=== PATIENT | female | born 1965 | race Caucasian/White ===

== ENCOUNTER 2018-09-13 10:27 | Observation (INO) ==
[2018-09-13] MEDS ORDERED: TORADOL IV ONE (10:58)
[2018-09-13 11:21] LABS: BASO# 0.03 X1000 (0.0-0.2); BASO% 0.5 % (0.0-0.8); EOS# 0.08 X1000 (0.0-0.7); EOS% 1.3 % (0.0-10.0); HEMATOCRIT 39.1 % (37.0-47.0); IMM GRAN# 0.02 X1000 (0.0-0.04); IMM GRAN% 0.3 % (0.0-0.5); LYMPH# 2.02 X1000 (1.2-3.4); LYMPH% 33.9 % (20.5-51.1); MCH 27.1 PG (27-31); MCHC 33.2 g/dL (33-37); MCV 81.6 FL (81-99); MONO% 10.1 % (1.7-9.3); MPV 11.1 FL (7.4-10.4); NEUT% 53.9 % (42.2-75.2); PLT 330 X1000 (130-400); RBC 4.79 XMIL (4.2-5.4); RDW 14.5 % (11.5-14.5); WBC 5.95 X1000 (4.8-10.8)
--- NOTE | 2018-09-13 11:22 | Diag Imaging Result Doc PS360 ---
EXAM: CHEST-1 VIEW HISTORY: chest pain TECHNIQUE: Portable two views COMPARISON: 09/07/2018 FINDINGS: The lungs are well expanded. The heart is not enlarged. The vessels are not distended. There are no infiltrates. No effusion identified. There has been surgery to the lower neck. IMPRESSION: Negative exam. Electronically signed by Yaron Spicer 09/13/2018 11:20 AM
[2018-09-13 11:29] LABS: INR 0.94; PROTIME 13.3 Seconds (11.0-16.0)
[2018-09-13 11:30] LABS: PTT 32.2 Seconds (22.3-41.8)
[2018-09-13 11:32] LABS: D-DIMER 0.3 ug/mLFEU (0.0-0.52)
[2018-09-13 11:40] LABS: ALB/GLOB RATIO 1.3; ALBUMIN 4.3 g/dL (3.5-5.0); CREATININE 1.2 mg/dL (0.5-0.9); POTASSIUM 4.3 mmol/L (3.5-5.1); TOTAL BILIRUBIN 0.42 mg/dL (0.20-1.00); TOTAL PROTEIN 7.5 g/dL (6.3-8.3)
[2018-09-13 11:55] LABS: URINE SOURCE CLEAN CATCH
[2018-09-13 12:04] LABS: BILIRUBIN URINE NEGATIVE (NEGATIVE); BLOOD URINE NEGATIVE (NEGATIVE); COLOR YELLOW; GLUCOSE URINE NEGATIVE (NEGATIVE); KETONE URINE NEGATIVE (NEGATIVE); LEUKOCYTES URINE NEGATIVE (NEGATIVE); NITRITE URINE NEGATIVE (NEGATIVE); PH URINE 7.5; PROTEIN URINE NEGATIVE (NEGATIVE); SP GRAVITY URINE 1.002; TURBIDITY URINE CLEAR (CLEAR); UROBILINOGEN URINE NORMAL (NORMAL)
[2018-09-13 12:05] LABS: UR EPITHELIAL CELLS <10 /HPF (<10); URINE BACTERIA NEGATIVE /HPF; URINE RBC <10 /HPF (<10); URINE WBC <10 /HPF (<10)
[2018-09-13 12:23] LABS: UR AMPHETAMINES QUAL NONE DETECTED (NONE DETECT); UR BARBITUATES QUAL NONE DETECTED (NONE DETECT); UR BENZODIAZEPIN QUAL NONE DETECTED (NONE DETECT); UR CANNABINOIDS QUAL NONE DETECTED (NONE DETECT); UR COCAINE QUAL NONE DETECTED (NONE DETECT); UR METHADONE QUAL NONE DETECTED (NONE DETECT); UR OPIATES QUAL NONE DETECTED (NONE DETECT); UR OXYCODONE QUAL NONE DETECTED (NONE DETECT); UR PCP QUAL NONE DETECTED (NONE DETECT)
--- NOTE | 2018-09-13 12:53 | EKG Report ---
Test Performed on : 09/13/2018 10:33:24 AM Test Reason : ED. NO EKG ORDER FOR MUSE Blood Pressure : / mmHG Vent. Rate : 062 BPM Atrial Rate : 062 BPM P-R Int : 168 ms QRS Dur : 080 ms QT Int : 422 ms P-R-T Axes : 083 021 041 degrees QTc Int : 428 ms Normal sinus rhythm. Septal infarct (cited on or before 28-AUG-2018) Abnormal ECG When compared with ECG of 28-AUG-2018 14:23, (Unconfirmed) No significant change was found Unconfirmed Result
[2018-09-13] MEDS ORDERED: ZOFRAN IV PRN (16:08)
[2018-09-13] MEDS ORDERED: VENTOLIN HFA INH PRN (16:11)
--- NOTE | 2018-09-13 16:37 | Diag Imaging Result Doc PS360 ---
EXAM: RIBS ONLY RIGHT 09/13/2018 HISTORY: right rib pain TECHNIQUE: Right rib series 4 views COMMENT: There is no evidence of pneumothorax or pleural fluid collection. The ribs appear to be intact. There is generalized osteopenia. The pedicles appear to be intact. IMPRESSION: No acute bony abnormality. Electronically signed by Deon Motta 09/13/2018 4:35 PM
--- NOTE | 2018-09-13 17:18 | HISTORY AND PHYSICAL ---
PRIMARY CARE PROVIDER: Dr. Guy at [facility]. WINDOW REPAIRER: From [facility] - tends to have physicians from there. CHIEF COMPLAINT: Right rib pain. HISTORY OF PRESENT ILLNESS: Ms. Jania Sharp is a 53-year-old female with a medical history of hyperlipidemia, hypothyroidism, asthma, autoimmune vitiligo, hiatal hernia, GERD, and depression who is now here stating that this is her third ER visit for this right rib pain that started about six weeks ago. She explains that around six weeks ago she had a sinus infection and went to a walk-in clinic where she was diagnosed with sinus infection, started on antibiotics. She claims she never had any coughing with that. She also states that she was having the right rib pain at that time as well. She went in for a followup visit. The pain was not better on the right ribs and she was prescribed Percocet and Aleve, which she states she has been taking twice a day, the Aleve once a day and the Percocet at night to help with pain. She went to [facility] ER about two weeks ago where she had a CT of the chest performed and they discharged her home with intercostal rib pain to take the Aleve and Percocet. She states that the Aleve actually helps with the pain the best. She also feels like it is worse when she is lying down. It feels better when she is sitting up. The pain radiates from her right lower rib cage around to her back and down her spine and essentially there are no other symptoms that go along with it, except she is short of breath whenever she is having more pain. Pain is continuous and it is primarily staying in a range of 10 on the pain scale. She also claims her last visit here that she was seen by Dr. Mederos, I believe as more of a swaging machine operator visit, according to her - her friend is friends with him and at that time he ordered a CT scan of the abdomen and pelvis and that was 09/07/2018, which reveals that there is constipation and mild mesenteric panniculitis, but is only mild. Her abdomen was soft. She might have had some mild tenderness in the right upper quadrant and in the right rib cage that wrapped around. She denies having any fever or chills and no other pains. She does state that she has on and off chest pains and has so for at least a year. So, back in November of 2017 she had a stress test here that did appear to be abnormal. She went to [facility] where she had a left heart catheterization performed and she states that was normal. Her asthma, she is seen by a sewer contractor by [facility], but she states that it is more of a chronic condition. She does not really have acute exacerbations of it. So, will admit to medical floor for observation for intractable pain of the right rib and get some imaging and put her on a lidocaine patch for that area. Really, the cause is unknown unless it is just a hairline fracture that is worsening. PAST MEDICAL HISTORY: 1. Hyperlipidemia. 2. Hypothyroidism. 3. Autoimmune vitiligo. 4. Asthma. 5. Chest pain on and off for a year. 6. Nine months ago treated for H pylori. 7. Hiatal hernia. 8. Depression. 9. GERD. PAST SURGICAL HISTORY: 1. May of 2016 had a breast reduction. 2. Appendectomy. 3. C4 through 6 fusion and L5 through S1 fusion. 4. Tonsillectomy. 5. Hysterectomy. 6. Right ovarian cyst removed. 7. Right elbow surgery due to a fracture. 8. Left elbow tendonitis surgery. 9. Bilateral knee meniscus tear repair. 10.Left heart catheterization in November 2017, that was negative. SOCIAL HISTORY: Denies tobacco or illicit drug use. She drinks one or two beers about one or two times per week. She has two adult sons, ages 23 and 25. Her is at the bedside. FAMILY HISTORY: Apparently autoimmune vitiligo is all through her family. She has eight sisters and four brothers, all of which have issues with dysphagia and hiatal hernias. Mother had pulmonary emboli and peptic ulcer disease. Father had coronary disease and congestive heart failure at age of 75. She had two brothers who had myocardial infarctions with stents prior to age 40. One sister with coronary artery disease and abdominal thoracic aneurysm and then one brother with bladder cancer. ALLERGIES: Adhesive tape, latex, natural rubber, morphine, and niacin. HOME MEDICATIONS: 1. Advair 250/50 once inhaled as needed. 2. Laura 180 mg p.o. daily. 3. Biotin 2500 mcg p.o. daily. 4. Flonase one spray nasally daily. 5. Krill oil 500 mg p.o. daily. 6. Protonix 40 mg p.o. daily. 7. Prozac 20 mg p.o. daily. 8. Evolocumab 140 mg injection twice a month. 9. Restasis to both eyes daily. 10.Synthroid 125 mcg p.o. daily. 11.Albuterol inhaled four times a day p.r.n. 12.Vitamin D3 5000 units p.o. daily. 13.Naproxen 500 mg p.o. twice daily. 14.She states she takes Percocet at night, but it is not listed under her home medications. REVIEW OF SYSTEMS: A 14-point review of systems is complete, and all were negative except for those mentioned in the above HPI. PHYSICAL EXAMINATION: VITAL SIGNS: Temperature is 98.3, heart rate 51, respiratory rate 13, blood pressure 135/79, O2 saturation is 97% on room air. GENERAL: Ms. Jania Sharp is a 53-year-old female. She is in no acute distress. She is able to answer questions appropriately. HEENT: Atraumatic and normocephalic. Pupils are equal, round and reactive to light. Extraocular movements intact. Mucous membranes are moist. NECK: Trachea midline. CARDIOVASCULAR: S1, S2. Bradycardic rate and rhythm. No rubs, gallops or murmurs. She has trace lower extremity pitting edema. There are plus 2 dorsalis and radial pulses. Negative JVD or carotid bruits. PULMONARY: Clear to auscultation with bilateral breath sounds. No accessory muscle use or work of breathing noted. Tolerating room air. GASTROINTESTINAL: Soft. Tender in the right upper quadrant. Positive bowel sounds x4. Right rib pain that radiates to the back with palpation as well. EXTREMITIES: Moves all extremities equally, full range of motion. NEUROLOGICAL: Alert and oriented x3. Follows commands. Sensory is intact. SKIN: Warm, dry and intact. LABORATORY DATA: White blood cells 5000, hemoglobin 13, hematocrit 39, platelet count 330. INR is 0.94. PTT is 32.2. D dimer is 0.3. Sodium is 140, potassium 4.3, BUN is 18, creatinine 1.2, glucose 84, calcium 10. Bilirubin is 0.42, AST is 12, ALT is 11, alkaline phosphatase 69. Troponin less than 0.01 x2. proBNP 185. Albumin 4.3. Urinalysis negative. Urine drug screen negative. IMAGING: Chest x-ray negative exam. EKG at 10:30 showed normal sinus rhythm; no ST changes, rate is 62. ASSESSMENT AND PLAN: 1. Intractable right rib pain. Has been progressively worse over the last six months with no known cause. She claims that she has not had any issues with coughing. She also claims that it feels like the same kind of pain she has had when she has had a rib fracture in the past. So, given the location of the pain will order a lidocaine patch to put over the top. Will continue her Naproxen and Percocet. May need pain clinic recommendations for discharge. The patient claims that she does not like to take much pain medication, tends only to take the Aleve in the morning and at night and only one Percocet at night. Will get a right rib cage x- ray specifically for the rib cage. 2. History of atypical chest pain on and off for a year. Coronary disease ruled out by left heart catheterization in November 2017. That was performed at [facility]. Cardiac enzymes are negative. There are no ST changes on her electrocardiogram. 3. Hypothyroidism. Continue Synthroid. 4. Hyperlipidemia. Continue home medication regimen for that. 5. Asthma. Continue inhalers. 6. Gastroesophageal reflux disease. Continue Protonix. 7. Depression. Continue Prozac. 8. Deep venous thrombosis with sequential compression devices. Dictated by KASIE Hernandez for Farzana Hwang MD cc: KASIE Hernandez MD Dr. Tripathi
[2018-09-13] MEDS: NS 1,000 ML IV SCH (17:19)
[2018-09-13] MEDS: LIDODERM TOP SCH (17:46)
[2018-09-13] MEDS: NAPROSYN PO SCH (20:52)
[2018-09-13] MEDS: ADVAIR 250/50 DISKUS INH SCH (23:40)
[2018-09-14] MEDS: PERCOCET-5 PO PRN ×2 (00:36→10:10)
[2018-09-14] MEDS: NS 1,000 ML IV SCH (06:06)
[2018-09-14] MEDS ORDERED: PROTONIX PO SCH (07:00)
[2018-09-14 07:24] LABS: BASO# 0.03 X1000 (0.0-0.2); BASO% 0.5 % (0.0-0.8); EOS# 0.09 X1000 (0.0-0.7); EOS% 1.6 % (0.0-10.0); HEMATOCRIT 36.8 % (37.0-47.0); HEMOGLOBIN 11.9 g/dL (12.0-16.0); IMM GRAN# 0.02 X1000 (0.0-0.04); IMM GRAN% 0.3 % (0.0-0.5); LYMPH# 2.25 X1000 (1.2-3.4); MCH 27.2 PG (27-31); MCHC 32.3 g/dL (33-37); MCV 84.2 FL (81-99); MONO# 0.57 X1000 (0.11-0.59); MONO% 9.9 % (1.7-9.3); MPV 10.7 FL (7.4-10.4); NEUT# 2.81 X1000 (1.4-6.5); NEUT% 48.7 % (42.2-75.2); PLT 300 X1000 (130-400); RBC 4.37 XMIL (4.2-5.4); RDW 14.7 % (11.5-14.5); WBC 5.77 X1000 (4.8-10.8)
--- NOTE | 2018-09-14 07:37 | EKG Report ---
Test Performed on : 09/14/2018 07:25:47 AM Test Reason : chest pain Blood Pressure : / mmHG Vent. Rate : 050 BPM Atrial Rate : 050 BPM P-R Int : 180 ms QRS Dur : 078 ms QT Int : 450 ms P-R-T Axes : 068 021 042 degrees QTc Int : 410 ms Sinus bradycardia. with premature atrial complexes. Otherwise normal ECG When compared with ECG of 13-SEP-2018 12:53, (Unconfirmed) premature atrial complexes. are now present Confirmed by Ritesh MULLINS, Bret ([id number]) on 09/14/2018 9:08:42 AM
[2018-09-14 07:38] LABS: PTT 33.6 Seconds (22.3-41.8)
[2018-09-14 07:41] LABS: ALB/GLOB RATIO 1.4; ALBUMIN 3.8 g/dL (3.5-5.0); CALCIUM 9.1 mg/dL (8.8-10.2); CREATININE 1.1 mg/dL (0.5-0.9); MAGNESIUM 2.1 mg/dL (1.5-2.7); POTASSIUM 4.7 mmol/L (3.5-5.1); TOTAL BILIRUBIN 0.17 mg/dL (0.20-1.00); TOTAL PROTEIN 6.6 g/dL (6.3-8.3)
--- NOTE | 2018-09-14 07:53 | EKG Report ---
Test Performed on : 09/13/2018 12:53:38 PM Test Reason : ED. NO EKG ORDER FOR MUSE Blood Pressure : / mmHG Vent. Rate : 045 BPM Atrial Rate : 045 BPM P-R Int : 190 ms QRS Dur : 084 ms QT Int : 480 ms P-R-T Axes : 059 010 029 degrees QTc Int : 415 ms Sinus bradycardia. Otherwise normal ECG When compared with ECG of 13-SEP-2018 10:33, (Unconfirmed) Criteria for Septal infarct are no longer present Unconfirmed Result
[2018-09-14] MEDS ORDERED: RESTASIS 0.05% OPH DROPS BOTH EYES SCH (09:00)
[2018-09-14] MEDS ORDERED: PROZAC PO SCH (09:00)
[2018-09-14] MEDS: ADVAIR 250/50 DISKUS INH SCH (09:00)
[2018-09-14] MEDS ORDERED: ALLEGRA PO SCH (09:00)
[2018-09-14] MEDS ORDERED: FLONASE NAS SCH (09:00)
[2018-09-14] MEDS ORDERED: PATIENT'S OWN MED PO SCH ×2 (09:00)
[2018-09-14] MEDS ORDERED: SYNTHROID PO SCH (09:00)
[2018-09-14] MEDS ORDERED: VITAMIN D PO SCH (09:00)
[2018-09-14] MEDS: LIDODERM TOP SCH (09:54)
[2018-09-14] MEDS: NAPROSYN PO SCH (09:55)
--- NOTE | 2018-09-14 11:57 | Diag Imaging Result Doc PS360 ---
EXAM: CT THORAX W/CONTRAST 09/14/2018 HISTORY: rib pain TECHNIQUE: This exam was performed using automated exposure control, adjustment of mA or kV according to patient size, and/or use of iterative reconstruction technique. COMMENT: There are apical pleural fibrotic changes bilaterally. There is no evidence of pneumothorax. There is a subcentimeter nodule adjacent to the major fissure on the right most likely representing a pleural node. A similar opacity is present in the left major fissure on image 59. There are no abnormal fluid collections. There is no evidence of significant adenopathy. The aorta is normal in appearance. There is a small hiatal hernia. There has been anterior fusion at C6-7. There is degenerative disc disease with anterior osteophyte formation at multiple thoracic levels. The ribs appear to be intact. There are no filling defects in the pulmonary arteries. IMPRESSION: Pleural fibrosis in both apices consistent with previous granulomatous disease. No evidence of acute bony abnormality or pleural effusion. Electronically signed by Deon Motta 09/14/2018 11:55 AM
[2018-09-14 12:07] VITALS: BP 106/54
[2018-09-14] MEDS ORDERED: PNEUMOVAX 23 IM ONE (14:54)
--- NOTE | 2018-09-14 18:45 | DISCHARGE SUMMARY ---
ADMISSION DATE: 09/13/2018 DISCHARGE DATE: 09/14/2018 DISCHARGE DIAGNOSIS: Right chest and abdomen pain. SUMMARY: She has had issues with this before. Had an extensive cardiac workup at [facility]. [facility] shows no angiographic evidence of disease. That was done in December 2017, so unlikely to be cardiac. She does not have CAD. She does have hypothyroid. She does ride horses on a regular basis for which I am suspicious this probably is a cause of her pain. I think she has been seen by Dr. Mederos and they did not see anything on that visit and it is persistent. CT was done on the , which was negative. She was constipated. Gallbladder looked okay and there was question of mesenteric panniculitis. We did a chest CT which showed some pleural fibrosis but no issues and certainly no rib fractures. It is possible this is gallbladder disease but apparently she had an abdominal ultrasound which was negative except for fatty liver. I recommended she follow up with GI since her rest of her workup was negative and pursue HIDA scan, which we will set up as an outpatient and I referred her to Dr. Bedoya because she wanted a more local provider than her [facility] doctors. DISCHARGE CONDITION: Stable. DISCHARGE MEDICATIONS: As follows: Advair, Laura 180, biotin, fluticasone, Krill oil, Protonix 40 daily, Prozac 20 daily, Repatha as needed. Restasis both eyes, Synthroid 125. Her TSH is a bit low at 0.22. We will add a free T4 level and make sure that is run and adjust her medicines. Vitamin D3 5000 units daily, Ventolin q.i.d., Lodine 300 b.i.d. for a week, then p.r.n., Percocet 5 q.6 hours p.r.n. pain, dispense 12. FOLLOWUP: Encouraged her to set up with a more local PCP, Dr. Peres and Dr. Barajas. TIME SPENT AT DISCHARGE: Thirty-two minute discharge. cc: Dank Hanson MD
== END 2018-09-14 15:43 | disposition home or self-care (01) ==
LOC: ED 10:27 → 3N 10:27 → SUATTDRO 10:28
PROVIDERS: ATTEND Internal Medicine
CPT/HCPCS: 71010; 71045; 71100; 71260; 80053; 80101; 80301; 80307; 80324; 80345; 80346; 80353; 80358; 80361; 80365; 81001; 82550; 83735; 83880; 83992; 84439; 84443; 84484; 85025; 85379; 85610; 85730; 90732; 93005; 93010; 94640; 96374; 99285; A9270; G0431; G0434; G0479; G0480; J1885; J7030; Q9967